=== PATIENT | female | born 1965 | race African-American/Black ===

== ENCOUNTER 2018-05-08 09:31 | Inpatient (IN) | payer BC ==
[~2018-05-08] VITALS: Ht 167.6 cm; Wt 114.3 kg
[2018-05-08] MEDS ORDERED: SODIUM CHLORIDE 0.9% 1,000 ML IV ONE (09:59)
[2018-05-08] MEDS ORDERED: ONDANSETRON HCL 4MG/2ML INJ IV STA (09:59)
[2018-05-08] MEDS ORDERED: KETOROLAC 30MG/ML VIAL IV STA (09:59)
[2018-05-08 10:26] LABS: HEMATOCRIT. 36.7 % (36.0-48.0); MEAN CORPUSCULAR HEMOGLOBIN 25.9 pg (28.0-32.0); MEAN CORPUSCULAR VOLUME 79.3 fL (81.0-99.0); MEAN PLATELET VOLUME 9.3 fl (7.4-10.4); PLATELET 166 x1000/uL (130-400); RED BLOOD CELL COUNT 4.63 mill/uL (4.2-5.4); RED CELL DISTRIBUTION WIDTH 14.9 % (11.6-14.6)
[2018-05-08 10:32] LABS: CHLORIDE 101 mEq/L (98-107)
[2018-05-08 10:33] LABS: INR 1.1; PROTHROMBIN TIME 10.9 sec (9.1-11.1)
[2018-05-08 11:29] LABS: PLATELET ESTIMATE NORMAL
[2018-05-08 11:47] LABS: CLARITY URINE TURBID (CLEAR); COLOR URINE YELLOW (YELLOW); KETONES URINE NEGATIVE (NEGATIVE); LEUKOCYTE ESTERASE URINE 3+ (NEGATIVE); NITRITE URINE POSITIVE (NEGATIVE); OCCULT BLOOD URINE 3+ (NEGATIVE); PH URINE 5.5 (4.5-8.0); PROTEIN URINE 2+ (NEGATIVE); SPECIFIC GRAVITY URINE 1.012 (1.005-1.030)
[2018-05-08] MEDS ORDERED: ONDANSETRON HCL 4MG/2ML INJ IV ONE (13:30)
[2018-05-08] MEDS ORDERED: CEFTRIAXONE 1 G PREMIX 50 ML IV ONE (13:30)
[2018-05-08] MEDS ORDERED: ACETAMINOPHEN 325MG TABLET PO ONE (13:30)
[2018-05-08] MEDS ORDERED: NA PHOS,M-B/NA PHOS,DI-BA ENEMA 118ML PR PRN (13:45)
[2018-05-08] MEDS ORDERED: IPRATROPIUM/ALBUTEROL 0.5-3(2.5)MG/3ML NEB INH PRN (13:45)
[2018-05-08] MEDS ORDERED: LORAZEPAM 2MG/ML CPJ IV PRN (13:45)
[2018-05-08] MEDS ORDERED: HYDROCODONE/ACETAMINOPHEN 10/325MG TABLET PO PRN (13:45)
[2018-05-08] MEDS ORDERED: CEFTRIAXONE 1 G PREMIX 50 ML IV SCH (13:45)
[2018-05-08] MEDS ORDERED: ONDANSETRON HCL 4MG/2ML INJ IV PRN (13:45)
[2018-05-08] MEDS ORDERED: MAGNESIUM/ALUMINUM HYDROXIDE/SIMETHICONE 30ML UDC PO PRN (13:45)
[2018-05-08] MEDS ORDERED: DIPHENHYDRAMINE 50MG/ML VIAL IV PRN (13:45)
[2018-05-08] MEDS ORDERED: DOCUSATE SODIUM 100MG CAPSULE PO PRN (13:45)
[2018-05-08] MEDS ORDERED: CLONIDINE 0.1MG TABLET PO PRN (13:45)
[2018-05-08] MEDS ORDERED: GUAIFENESIN 200MG/10ML SUGAR FREE UDC PO PRN (13:45)
[2018-05-08] MEDS ORDERED: MORPHINE SULFATE 4 MG/ML CPJ (NOT FOR IM USE) IV PRN (13:45)
[2018-05-08 18:14] VITALS: BP 123/81
[2018-05-08] MEDS: ACETAMINOPHEN 325MG TABLET PO PRN (18:56)
[2018-05-08] MEDS: ENOXAPARIN 30MG/0.3ML SYR SUBCUT SCH (18:56)
[2018-05-08] MEDS: SODIUM CHLORIDE 0.45% 1,000 ML IV SCH (19:00)
[2018-05-08 20:00] VITALS: BP 119/49
[2018-05-08 21:15] LABS: CREATINE KINASE 38 IU/L (26-192)
[2018-05-08 21:16] LABS: CREATINE KINASE MB FRACTION < 1.0 ng/mL (0.5-3.6)
[2018-05-09] VITALS: BP 100/52
[2018-05-09 04:00] VITALS: BP 110/66
[2018-05-09] MEDS: ACETAMINOPHEN 325MG TABLET PO PRN ×2 (05:23→15:06)
[2018-05-09] MEDS: SODIUM CHLORIDE 0.45% 1,000 ML IV SCH ×2 (06:05→23:26)
[2018-05-09 07:21] LABS: CHLORIDE 103 mEq/L (98-107); HEMATOCRIT. 32.4 % (36.0-48.0); HEMOGLOBIN. 10.9 g/dL (12.0-16.0); MEAN CORPUSCULAR HEMOGLOBIN 26.3 pg (28.0-32.0); MEAN CORPUSCULAR VOLUME 78.5 fL (81.0-99.0); MEAN PLATELET VOLUME 9.7 fl (7.4-10.4); PLATELET 151 x1000/uL (130-400); RED BLOOD CELL COUNT 4.13 mill/uL (4.2-5.4); RED CELL DISTRIBUTION WIDTH 14.8 % (11.6-14.6)
[2018-05-09 07:47] LABS: CREATINE KINASE 25 IU/L (26-192)
[2018-05-09 07:48] LABS: T4 FREE 1.24 ng/dL (0.76-1.46)
[2018-05-09 07:50] LABS: CREATINE KINASE MB FRACTION < 1.0 ng/mL (0.5-3.6)
[2018-05-09 08:21] VITALS: BP 112/71
[2018-05-09] MEDS: ASPIRIN 81MG EC TABLET PO SCH (09:04)
[2018-05-09] MEDS: ENOXAPARIN 30MG/0.3ML SYR SUBCUT SCH ×2 (09:04→20:53)
[2018-05-09 12:23] VITALS: BP 112/77
[2018-05-09 12:32] LABS: PLATELET ESTIMATE NORMAL
[2018-05-09] MEDS: CEFTRIAXONE 1 G PREMIX 50 ML IV SCH (14:56)
[2018-05-09 15:28] VITALS: BP 121/55
[2018-05-09 20:00] VITALS: BP 102/56
[2018-05-10] VITALS (8 sets, daily range): BP systolic 88–125; BP diastolic 54–68
[2018-05-10 07:38] LABS: BASOPHILS % 0.9 % (0.0-2.0); EOSINOPHILS % 0.7 % (0.0-5.0); HEMATOCRIT. 34.3 % (36.0-48.0); HEMOGLOBIN. 11.5 g/dL (12.0-16.0); LYMPHOCYTES % 11.9 % (20.0-50.0); MEAN CORPUSCULAR HEMOGLOBIN 26.5 pg (28.0-32.0); MEAN CORPUSCULAR VOLUME 79.1 fL (81.0-99.0); MEAN PLATELET VOLUME 9.7 fl (7.4-10.4); MONOCYTES % 10.7 % (2.0-8.0); NEUTROPHILS % 75.8 % (40.0-76.0); PLATELET 165 x1000/uL (130-400); RED BLOOD CELL COUNT 4.33 mill/uL (4.2-5.4); RED CELL DISTRIBUTION WIDTH 14.8 % (11.6-14.6)
[2018-05-10] MEDS: ASPIRIN 81MG EC TABLET PO SCH (08:25)
[2018-05-10] MEDS: ENOXAPARIN 30MG/0.3ML SYR SUBCUT SCH ×2 (08:26→21:50)
[2018-05-10] MEDS: SODIUM CHLORIDE 0.45% 1,000 ML IV SCH ×2 (13:37→22:59)
[2018-05-10] MEDS: ACETAMINOPHEN 325MG TABLET PO PRN (13:38)
[2018-05-10] MEDS: CEFTRIAXONE 1 G PREMIX 50 ML IV SCH (13:38)
[2018-05-10 13:42] LABS: CREATINE KINASE 27 IU/L (26-192)
[2018-05-11] VITALS: BP 122/72
[2018-05-11 04:00] VITALS: BP 118/69
[2018-05-11 08:00] VITALS: BP 128/74
[2018-05-11 08:00] LABS: HEMATOCRIT. 33.6 % (36.0-48.0); MEAN CORPUSCULAR HEMOGLOBIN 25.9 pg (28.0-32.0); MEAN CORPUSCULAR VOLUME 78.8 fL (81.0-99.0); MEAN PLATELET VOLUME 9.9 fl (7.4-10.4); PLATELET 189 x1000/uL (130-400); RED BLOOD CELL COUNT 4.27 mill/uL (4.2-5.4); RED CELL DISTRIBUTION WIDTH 14.8 % (11.6-14.6)
[2018-05-11] MEDS: ASPIRIN 81MG EC TABLET PO SCH (08:33)
[2018-05-11] MEDS: ENOXAPARIN 30MG/0.3ML SYR SUBCUT SCH (08:34)
[2018-05-11] MEDS: SODIUM CHLORIDE 0.45% 1,000 ML IV SCH (08:59)
[2018-05-11 12:00] VITALS: BP 124/66
[2018-05-11 16:21] LABS: PLATELET ESTIMATE NORMAL
== END 2018-05-11 13:45 | disposition home or self-care (01) | DRG 871 ==
LOC: EDBEDREQ 14:14 → EDBEDREQTM 14:14 → ER 14:55 → ENRESERV 16:00 → 6WST 16:12
PROVIDERS: ADMIT Internal Medicine; ATTEND Internal Medicine
DX: A41.9 Sepsis, unspecified organism (principal); N17.0 Acute kidney failure with tubular necrosis; N12 Tubulo-interstitial nephritis, not specified as acute or chronic; E44.1 Mild protein-calorie malnutrition; I95.9 Hypotension, unspecified; D64.9 Anemia, unspecified; J45.909 Unspecified asthma, uncomplicated; Z98.891 History of uterine scar from previous surgery; Z88.4 Allergy status to anesthetic agent
CPT/HCPCS: 36415; 76770; 80048; 82550; 82553; 83605; 84439; 84484; 87077; 87186; 96361; 96365; 96375; 99285; J0696; J1650; J1885; J2405; J7030

== ENCOUNTER 2018-09-03 19:49 | Emergency (ER) | payer BC ==
[~2018-09-03] VITALS: Ht 167.6 cm; Wt 113.0 kg
[2018-09-03 21:55] LABS: CLARITY URINE CLOUDY (CLEAR); COLOR URINE YELLOW (YELLOW); KETONES URINE NEGATIVE (NEGATIVE); LEUKOCYTE ESTERASE URINE 3+ (NEGATIVE); NITRITE URINE NEGATIVE (NEGATIVE); OCCULT BLOOD URINE 2+ (NEGATIVE); PH URINE 5.5 (4.5-8.0); PROTEIN URINE NEGATIVE (NEGATIVE); SPECIFIC GRAVITY URINE 1.013 (1.005-1.030); UROBILINOGEN URINE 0.2 E.U./dL (0.2-1.0)
[2018-09-03] MEDS ORDERED: IBUPROFEN 600MG TABLET PO ONE (22:15)
[2018-09-03 22:30] VITALS: BP 120/71
== END 2018-09-03 22:31 | disposition home or self-care (01) ==
LOC: ER 19:49
DX: N12 Tubulo-interstitial nephritis, not specified as acute or chronic (principal); Z88.6 Allergy status to analgesic agent
CPT/HCPCS: 99283

== ENCOUNTER 2021-02-09 16:57 | Inpatient (IN) | payer BC ==
[~2021-02-09] VITALS: Ht 167.6 cm; Wt 106.6 kg
[2021-02-09] MEDS ORDERED: ACETAMINOPHEN 325MG TABLET PO ONE (18:30)
[2021-02-09 19:45] LABS: BG BASE EXCESS 2.1 mmol/L (-2.0-2.0); BG CARBOXYHEMOGLOBIN 0.5 % (0.5-1.5); BG DEOXYHEMOGLOBIN 1.9 % (0.0-5.0); BG FRACTION INSPIRED OXYGEN 28; BG HCO3 ACT 26.3 mmol/L (22.0-26.0); BG METHEMOGLOBIN 0.2 % (0.0-1.5); BG OXYGEN SATURATION 98.1 % (92.0-98.5); BG OXYHEMOGLOBIN 97.4 % (94.0-97.0); BG PCO2 39.5 mmHg (35.0-45.0); BG PH 7.441 (7.350-7.450); BG PO2 109.9 mmHg (75.0-100.0); BG SAMPLE SITE RIGHT RADIAL; BG TOTAL HEMOGLOBIN 13.3 g/dL (12.0-18.0); BG VENT MODE NASAL CANNULA
[2021-02-09 20:41] LABS: BASOPHILS % 0.4 % (0.0-2.0); HEMATOCRIT. 37.7 % (36.0-48.0); HEMOGLOBIN. 12.7 g/dL (12.0-16.0); LYMPHOCYTES % 14.6 % (20.0-50.0); MEAN CORPUSCULAR HEMOGLOBIN 25.9 pg (28.0-32.0); MEAN CORPUSCULAR VOLUME 76.6 fL (81.0-99.0); MEAN PLATELET VOLUME 9.6 fl (7.4-10.4); PLATELET 147 x1000/uL (130-400); RED BLOOD CELL COUNT 4.92 mill/uL (4.2-5.4); RED CELL DISTRIBUTION WIDTH 14.9 % (11.6-14.6)
[2021-02-09 20:43] LABS: CHLORIDE 99 mEq/L (98-107)
[2021-02-09 20:51] LABS: CREATINE KINASE 441 IU/L (26-192)
[2021-02-09] MEDS ORDERED: CEFTRIAXONE 1 G PREMIX 50 ML IV ONE (21:00)
[2021-02-09] MEDS ORDERED: AZITHROMYCIN 500 MG in DEXT 5% WATER 250 ML IV ONE (21:00)
[2021-02-09] MEDS ORDERED: FUROSEMIDE 100MG/10ML VIAL IV STA (21:19)
[2021-02-09 21:26] LABS: D-DIMER 1.78 mg/L FEU (<0.50); PROTHROMBIN TIME 10.9 sec (9.6-11.0)
[2021-02-09] MEDS ORDERED: DEXTROSE 50% WATER 50ML SYRINGE IV ONE (21:30)
[2021-02-09] MEDS ORDERED: INSULIN REGULAR (HUMULIN R) 300UNITS/3ML VIAL IV ONE (21:30)
[2021-02-09] MEDS ORDERED: CALCIUM CHLORIDE 1GM/10ML SYR IV ONE (21:30)
[2021-02-09] MEDS ORDERED: ALBUTEROL (0.083%) 2.5MG/3ML NEB HHN ONE (21:30)
[2021-02-09] MEDS ORDERED: SODIUM BICARBONATE 8.4% 1 MEQ/ML 50ML SYR IV ONE (21:30)
[2021-02-09] MEDS ORDERED: SODIUM CHLORIDE 0.9% 1,000 ML IV ONE (23:45)
[2021-02-09] MEDS ORDERED: ACETAMINOPHEN 325MG TABLET PO PRN ×2 (23:45)
[2021-02-09] MEDS ORDERED: CEFTRIAXONE 1 G PREMIX 50 ML IV SCH (23:45)
[2021-02-09] MEDS ORDERED: DIPHENHYDRAMINE 50MG/ML VIAL IV PRN (23:45)
[2021-02-09] MEDS ORDERED: ONDANSETRON HCL 4MG/2ML INJ IV PRN (23:45)
[2021-02-09] MEDS ORDERED: MAGNESIUM/ALUMINUM HYDROXIDE/SIMETHICONE 30ML UDC PO PRN (23:45)
[2021-02-09] MEDS ORDERED: ACETAMINOPHEN 650MG/20.3ML UDC GT PRN (23:45)
[2021-02-09] MEDS ORDERED: GUAIFENESIN 200MG/10ML SUGAR FREE UDC PO PRN (23:45)
[2021-02-09] MEDS ORDERED: CLONIDINE 0.1MG TABLET PO PRN (23:45)
[2021-02-10] MEDS: SODIUM CHLORIDE 0.9% 1,000 ML IV SCH ×2 (01:00→17:05)
[2021-02-10 07:56] LABS: CLARITY URINE CLOUDY (CLEAR); COLOR URINE YELLOW (YELLOW); KETONES URINE NEGATIVE (NEGATIVE); LEUKOCYTE ESTERASE URINE 1+ (NEGATIVE); NITRITE URINE NEGATIVE (NEGATIVE); OCCULT BLOOD URINE TRACE (NEGATIVE); PH URINE 5.5 (4.5-8.0); PROTEIN URINE 1+ (NEGATIVE); SPECIFIC GRAVITY URINE 1.015 (1.005-1.030); UROBILINOGEN URINE 0.2 E.U./dL (0.2-1.0)
[2021-02-10 08:14] LABS: *AMPHETAMINES SCREEN URINE NEGATIVE (NEGATIVE); *BARBITURATES SCREEN URINE NEGATIVE (NEGATIVE); *BENZODIAZEPINES SCREEN URINE NEGATIVE (NEGATIVE); *COCAINE SCREEN URINE NEGATIVE (NEGATIVE); CANNABINOID URINE SCREEN NEGATIVE (NEGATIVE); METHADONE URINE SCREEN NEGATIVE (NEGATIVE); OPIATES URINE SCREEN NEGATIVE (NEGATIVE); PHENCYCLIDINE URINE SCREEN NEGATIVE (NEGATIVE)
[2021-02-10] MEDS ORDERED: DOCUSATE SODIUM 100MG CAPSULE PO PRN (08:15)
[2021-02-10] MEDS ORDERED: MAGNESIUM/ALUMINUM HYDROXIDE/SIMETHICONE 30ML UDC PO PRN (08:15)
[2021-02-10] MEDS ORDERED: ACETAMINOPHEN 650MG SUPP PR PRN (08:15)
[2021-02-10] MEDS ORDERED: ACETAMINOPHEN 325MG TABLET PO PRN (08:15)
[2021-02-10] MEDS ORDERED: ACETAMINOPHEN 650MG/20.3ML UDC GT PRN (08:15)
[2021-02-10] MEDS ORDERED: CLONIDINE 0.1MG TABLET PO PRN (08:15)
[2021-02-10] MEDS ORDERED: AZITHROMYCIN 500 MG in DEXT 5% WATER 250 ML IV SCH ×2 (08:15→21:00)
[2021-02-10] MEDS ORDERED: CEFTRIAXONE 1 G PREMIX 50 ML IV SCH (08:15)
[2021-02-10 09:27] LABS: CREATINE KINASE 393 IU/L (26-192); CREATINE KINASE MB FRACTION 1.3 ng/mL (0.5-3.6)
[2021-02-10] MEDS: ENOXAPARIN 30MG/0.3ML SYR SUBCUT SCH ×2 (09:42→21:12)
[2021-02-10 10:40] LABS: CHLORIDE 101 mEq/L (98-107); LDL CHOLESTEROL 80 mg/dL (5-100)
[2021-02-10 10:41] LABS: HDL CHOLESTEROL 30 mg/dL (40-59)
[2021-02-10 12:14] LABS: BASOPHILS % 0.5 % (0.0-2.0); HEMATOCRIT. 40.9 % (36.0-48.0); HEMOGLOBIN. 12.9 g/dL (12.0-16.0); LYMPHOCYTES % 15.4 % (20.0-50.0); MEAN CORPUSCULAR HEMOGLOBIN 25.8 pg (28.0-32.0); MEAN CORPUSCULAR VOLUME 81.5 fL (81.0-99.0); MEAN PLATELET VOLUME 10.1 fl (7.4-10.4); MONOCYTES % 3.8 % (2.0-8.0); NEUTROPHILS % 80.3 % (40.0-76.0); PLATELET 137 x1000/uL (130-400); RED BLOOD CELL COUNT 5.01 mill/uL (4.2-5.4); RED CELL DISTRIBUTION WIDTH 15.3 % (11.6-14.6)
[2021-02-10] MEDS: ACETAMINOPHEN 325MG TABLET PO PRN (15:09)
[2021-02-10] MEDS: DEXAMETHASONE 10 MG/ML VIAL PO SCH (15:11)
[2021-02-10 16:36] VITALS: BP 98/36
[2021-02-10] MEDS ORDERED: GUAI600T26 MT (16:47)
[2021-02-10] MEDS ORDERED: ZINC50TA69 MT (16:47)
[2021-02-10] MEDS ORDERED: TOPUD MT (16:54)
[2021-02-10] MEDS ORDERED: CHOL400D7 PO (16:54)
[2021-02-10 20:00] VITALS: BP 90/58
[2021-02-10 20:34] LABS: CREATINE KINASE 592 IU/L (26-192); CREATINE KINASE MB FRACTION < 1.0 ng/mL (0.5-3.6)
[2021-02-10] MEDS: CEFTRIAXONE 1,000 MG in DEXTROSE 5% WATER 50 ML IV SCH (23:31)
[2021-02-11] VITALS: BP 95/62
[2021-02-11 04:00] VITALS: BP 104/86
[2021-02-11 08:00] VITALS: BP 105/49
[2021-02-11] MEDS: DEXAMETHASONE 10 MG/ML VIAL PO SCH (08:28)
[2021-02-11] MEDS: ACETAMINOPHEN 325MG TABLET PO PRN (08:28)
[2021-02-11] MEDS: ENOXAPARIN 30MG/0.3ML SYR SUBCUT SCH ×2 (08:29→20:44)
[2021-02-11] MEDS: GUAIFENESIN 200MG/10ML SUGAR FREE UDC PO PRN ×3 (08:29→20:45)
[2021-02-11 09:04] LABS: CHLORIDE 104 mEq/L (98-107)
[2021-02-11 09:14] LABS: BASOPHILS % 0.3 % (0.0-2.0); EOSINOPHILS % 0.1 % (0.0-5.0); HEMATOCRIT. 43.5 % (36.0-48.0); HEMOGLOBIN. 13.5 g/dL (12.0-16.0); LYMPHOCYTES % 8.6 % (20.0-50.0); MEAN CORPUSCULAR HEMOGLOBIN 25.9 pg (28.0-32.0); MEAN CORPUSCULAR VOLUME 83.1 fL (81.0-99.0); MEAN PLATELET VOLUME 10.6 fl (7.4-10.4); PLATELET 115 x1000/uL (130-400); RED BLOOD CELL COUNT 5.23 mill/uL (4.2-5.4); RED CELL DISTRIBUTION WIDTH 14.9 % (11.6-14.6)
[2021-02-11] MEDS: SODIUM CHLORIDE 0.9% 1,000 ML IV SCH (10:44)
[2021-02-11 12:17] VITALS: BP 115/79
[2021-02-11 16:00] VITALS: BP 98/63
[2021-02-11] MEDS ORDERED: AZIT500T3 MT ×2 (17:45)
[2021-02-11] MEDS ORDERED: DEX6 MT ×2 (17:45)
[2021-02-11 20:00] VITALS: BP 105/71
[2021-02-11] MEDS: CEFTRIAXONE 1,000 MG in DEXTROSE 5% WATER 50 ML IV SCH (20:44)
[2021-02-11] MEDS ORDERED: AZITHROMYCIN 500 MG in DEXT 5% WATER 250 ML IV SCH (21:00)
[2021-02-12] VITALS: BP 99/51
[2021-02-12] MEDS: GUAIFENESIN 200MG/10ML SUGAR FREE UDC PO PRN ×3 (02:09→20:14)
[2021-02-12 04:00] VITALS: BP 101/61
[2021-02-12] MEDS: SODIUM CHLORIDE 0.9% 1,000 ML IV SCH ×2 (04:10→20:14)
[2021-02-12 08:00] VITALS: BP 115/62
[2021-02-12] MEDS: DEXAMETHASONE 10 MG/ML VIAL PO SCH (09:07)
[2021-02-12] MEDS: ENOXAPARIN 30MG/0.3ML SYR SUBCUT SCH ×2 (09:07→20:18)
[2021-02-12] MEDS: ACETAMINOPHEN 325MG TABLET PO PRN ×2 (10:12→20:15)
[2021-02-12 12:00] VITALS: BP 110/68
[2021-02-12 16:00] VITALS: BP 109/76
[2021-02-12 20:00] VITALS: BP 149/83
[2021-02-12] MEDS: CEFTRIAXONE 1,000 MG in DEXTROSE 5% WATER 50 ML IV SCH (20:15)
[2021-02-12] MEDS: AZITHROMYCIN 500 MG TABLET PO SCH (20:17)
[2021-02-13] VITALS: BP 129/73
[2021-02-13 04:00] VITALS: BP 163/91
[2021-02-13] MEDS: GUAIFENESIN 200MG/10ML SUGAR FREE UDC PO PRN ×4 (04:21→20:58)
[2021-02-13 08:00] VITALS: BP 120/81
[2021-02-13] MEDS: ENOXAPARIN 30MG/0.3ML SYR SUBCUT SCH ×2 (08:32→20:59)
[2021-02-13] MEDS: DEXAMETHASONE 6MG TABLET PO SCH (08:32)
[2021-02-13] MEDS: SODIUM CHLORIDE 0.9% 1,000 ML IV SCH (11:31)
[2021-02-13] MEDS: ACETAMINOPHEN 325MG TABLET PO PRN (11:51)
[2021-02-13 11:59] VITALS: BP 119/76
[2021-02-13 16:00] VITALS: BP 139/79
[2021-02-13 20:41] VITALS: BP 123/74
[2021-02-13] MEDS: CEFTRIAXONE 1,000 MG in DEXTROSE 5% WATER 50 ML IV SCH (20:45)
[2021-02-13] MEDS: AZITHROMYCIN 500 MG TABLET PO SCH (20:58)
[2021-02-14 00:24] VITALS: BP 146/81
[2021-02-14 04:00] VITALS: BP 113/60
[2021-02-14] MEDS: GUAIFENESIN 200MG/10ML SUGAR FREE UDC PO PRN ×4 (05:12→20:21)
[2021-02-14] MEDS: SODIUM CHLORIDE 0.9% 1,000 ML IV SCH ×2 (05:12→20:22)
[2021-02-14 07:59] VITALS: BP 108/67
[2021-02-14] MEDS: ENOXAPARIN 30MG/0.3ML SYR SUBCUT SCH ×2 (09:24→20:22)
[2021-02-14] MEDS: DEXAMETHASONE 6MG TABLET PO SCH (09:25)
[2021-02-14 12:00] VITALS: BP 122/69
[2021-02-14] MEDS: ACETAMINOPHEN 325MG TABLET PO PRN (15:32)
[2021-02-14 16:00] VITALS: BP 115/63
[2021-02-14] MEDS: ALBUTEROL 6.7GM HFA INHALER ORI SCH (18:21)
[2021-02-14 20:00] VITALS: BP 105/63
[2021-02-14] MEDS: CEFTRIAXONE 1,000 MG in DEXTROSE 5% WATER 50 ML IV SCH (20:21)
[2021-02-15] VITALS: BP 99/71
[2021-02-15] MEDS: ALBUTEROL 6.7GM HFA INHALER ORI SCH ×5 (00:56→23:07)
[2021-02-15 04:00] VITALS: BP 122/59
[2021-02-15 08:00] VITALS: BP 115/67
[2021-02-15] MEDS: DEXAMETHASONE 6MG TABLET PO SCH ×2 (08:56→23:07)
[2021-02-15] MEDS: ENOXAPARIN 30MG/0.3ML SYR SUBCUT SCH ×2 (08:57→20:24)
[2021-02-15] MEDS: GUAIFENESIN 200MG/10ML SUGAR FREE UDC PO PRN ×4 (09:03→23:07)
[2021-02-15] MEDS: ACETAMINOPHEN 325MG TABLET PO PRN (09:26)
[2021-02-15 12:00] VITALS: BP 96/63
[2021-02-15] MEDS: SODIUM CHLORIDE 0.9% 1,000 ML IV SCH (13:28)
[2021-02-15] MEDS: CEFEPIME 2,000 MG in DEXT 5% WATER 100 ML IV SCH (15:18)
[2021-02-15 16:00] VITALS: BP 107/64
[2021-02-15] MEDS: IVERMECTIN 3 MG TABLET PO SCH (18:46)
[2021-02-15 20:00] VITALS: BP 106/55
[2021-02-15] MEDS: PROMETHAZINE/DEXTROMETHORPHAN 6.25-15MG/5ML BOTTLE 120ML PO SCH (20:24)
[2021-02-16] VITALS: BP 107/55
[2021-02-16 04:00] VITALS: BP 103/64
[2021-02-16] MEDS: CEFEPIME 2,000 MG in DEXT 5% WATER 100 ML IV SCH ×2 (04:18→15:30)
[2021-02-16] MEDS: SODIUM CHLORIDE 0.9% 1,000 ML IV SCH (05:35)
[2021-02-16] MEDS: ALBUTEROL 6.7GM HFA INHALER ORI SCH ×3 (05:35→17:00)
[2021-02-16 08:00] VITALS: BP 108/72
[2021-02-16] MEDS: DEXAMETHASONE 6MG TABLET PO SCH ×2 (08:07→16:22)
[2021-02-16] MEDS: ENOXAPARIN 30MG/0.3ML SYR SUBCUT SCH ×2 (08:07→20:52)
[2021-02-16 12:00] VITALS: BP 110/63
[2021-02-16] MEDS: IVERMECTIN 3 MG TABLET PO SCH (15:32)
[2021-02-16 16:00] VITALS: BP 99/55
[2021-02-16 20:00] VITALS: BP 133/72
[2021-02-16] MEDS: PROMETHAZINE/DEXTROMETHORPHAN 6.25-15MG/5ML BOTTLE 120ML PO SCH (20:53)
[2021-02-17] MEDS: SODIUM CHLORIDE 0.9% 1,000 ML IV SCH ×2 (00:04→16:04)
[2021-02-17] MEDS: ALBUTEROL 6.7GM HFA INHALER ORI SCH ×5 (00:05→23:44)
[2021-02-17 00:39] VITALS: BP 116/74
[2021-02-17 04:00] VITALS: BP 136/62
[2021-02-17] MEDS: CEFEPIME 2,000 MG in DEXT 5% WATER 100 ML IV SCH ×2 (04:17→16:04)
[2021-02-17 08:00] VITALS: BP 111/67
[2021-02-17] MEDS: ENOXAPARIN 30MG/0.3ML SYR SUBCUT SCH ×2 (08:05→21:03)
[2021-02-17] MEDS: DEXAMETHASONE 6MG TABLET PO SCH ×2 (08:06→16:04)
[2021-02-17 12:00] VITALS: BP 94/50
[2021-02-17 16:00] VITALS: BP 92/52
[2021-02-17] MEDS: IVERMECTIN 3 MG TABLET PO SCH (16:04)
[2021-02-17 20:00] VITALS: BP 149/98
[2021-02-17] MEDS: PROMETHAZINE/DEXTROMETHORPHAN 6.25-15MG/5ML BOTTLE 120ML PO SCH (21:03)
[2021-02-18] VITALS: BP 139/103
[2021-02-18 04:00] VITALS: BP 132/73
[2021-02-18] MEDS: CEFEPIME 2,000 MG in DEXT 5% WATER 100 ML IV SCH ×2 (04:33→15:32)
[2021-02-18] MEDS: ALBUTEROL 6.7GM HFA INHALER ORI SCH ×3 (05:21→18:16)
[2021-02-18 08:00] VITALS: BP 124/73
[2021-02-18] MEDS: DEXAMETHASONE 6MG TABLET PO SCH (08:24)
[2021-02-18] MEDS: SODIUM CHLORIDE 0.9% 1,000 ML IV SCH (08:29)
[2021-02-18] MEDS: ENOXAPARIN 30MG/0.3ML SYR SUBCUT SCH ×2 (09:00→20:50)
[2021-02-18 12:00] VITALS: BP 100/63
[2021-02-18] MEDS: IVERMECTIN 3 MG TABLET PO SCH (15:32)
[2021-02-18 16:00] VITALS: BP 110/74
[2021-02-18 19:35] LABS: BASOPHILS % 0.4 % (0.0-2.0); EOSINOPHILS % 0.1 % (0.0-5.0); HEMATOCRIT. 39.1 % (36.0-48.0); HEMOGLOBIN. 12.6 g/dL (12.0-16.0); LYMPHOCYTES % 8.8 % (20.0-50.0); MEAN CORPUSCULAR HEMOGLOBIN 25.8 pg (28.0-32.0); MEAN CORPUSCULAR VOLUME 80.4 fL (81.0-99.0); MEAN PLATELET VOLUME 8.5 fl (7.4-10.4); MONOCYTES % 5.4 % (2.0-8.0); NEUTROPHILS % 85.3 % (40.0-76.0); PLATELET 511 x1000/uL (130-400); RED BLOOD CELL COUNT 4.87 mill/uL (4.2-5.4); RED CELL DISTRIBUTION WIDTH 14.5 % (11.6-14.6)
[2021-02-18 20:00] VITALS: BP 116/69
[2021-02-18 20:27] LABS: CHLORIDE 102 mEq/L (98-107)
[2021-02-18] MEDS: PROMETHAZINE/DEXTROMETHORPHAN 6.25-15MG/5ML BOTTLE 120ML PO SCH (20:50)
[2021-02-18] MEDS ORDERED: LORAZEPAM 2MG/ML CPJ IV PRN (23:30)
[2021-02-19] VITALS: BP 127/77
[2021-02-19] MEDS: ALBUTEROL 6.7GM HFA INHALER ORI SCH ×2 (00:10→06:37)
[2021-02-19] MEDS: SODIUM CHLORIDE 0.9% 1,000 ML IV SCH (00:50)
[2021-02-19 04:00] VITALS: BP 114/68
[2021-02-19] MEDS: CEFEPIME 2,000 MG in DEXT 5% WATER 100 ML IV SCH (04:50)
[2021-02-19 08:00] VITALS: BP 121/71
[2021-02-19] MEDS: ENOXAPARIN 30MG/0.3ML SYR SUBCUT SCH (08:05)
[2021-02-19 08:18] VITALS: BP 121/68
== END 2021-02-19 09:00 | disposition home or self-care (01) | DRG 871 ==
LOC: ER 16:57 → MICUSO 22:05 → EDBEDREQ 22:09 → EDBEDREQTM 22:09 → EDBEDREQSVC 22:09 → 7WST 02-10 15:46
PROVIDERS: ADMIT Family Medicine; ATTEND Family Medicine
DX: A41.89 Other specified sepsis (principal); U07.1 COVID-19; J12.82 Pneumonia due to coronavirus disease 2019; J96.01 Acute respiratory failure with hypoxia; E87.1 Hypo-osmolality and hyponatremia; R65.20 Severe sepsis without septic shock; E66.9 Obesity, unspecified; E87.5 Hyperkalemia; J45.909 Unspecified asthma, uncomplicated; Z79.01 Long term (current) use of anticoagulants; Z91.041 Radiographic dye allergy status; Z68.37 Body mass index [BMI] 37.0-37.9, adult
CPT/HCPCS: 36415; 36600; 71045; 80048; 80053; 80061; 80305; 81003; 82375; 82550; 82553; 82728; 82805; 82962; 83036; 83605; 83615; 83880; 84145; 84484; 85025; 85379; 85384; 86140; 93005; 93970; 99291; C1893; J0456; J0692; J0696; J1100; J1200; J1650; J1815; J1940; J3490; J7030; J7060; U0003; U0005